=== PATIENT | female | born 1995 | race Caucasian/White ===

== ENCOUNTER 2019-01-09 09:55 | Emergency (ER) | payer MEDICAID ==
[~2019-01-09] VITALS: Ht 170.2 cm; Wt 67.7 kg
--- NOTE | 2019-01-09 10:30 | NUR ---
THIS IS A 23 YO FEMALE WHO PRESENTS TO THE ER C/O INTERMITTENT LEFT SIDED VISION LOSS WITH A SHARP PAIN BEHIND RIGHT EYE. PT REPORTS LEFT HAND PARASTHESIAS AND DECREASED SENSATION. PT CURRENTLY DENIES VISION LOSS AND HEAD PAIN BUT DOES REPORT DECREASED LEFT HAND SENSATION. PT AO X 4. SPEECH CLEAR. FACE SYMMETRICAL. PT ABLE TO [place] W/O DIFFICULTY. SKIN PWD. PT ON CONT BP AND O2 MONITORS. CALL LIGHT WITHIN REACH. WILL CONT TO MONITOR PT.
[2019-01-09] MEDS ORDERED: KETOROLAC 30 MG/1 ML IVPush ONE (11:30)
[2019-01-09] MEDS ORDERED: DIPHENHYDRAMINE 50 MG/ML, 1ML IVPush ONE (11:30)
[2019-01-09] MEDS ORDERED: PROCHLORPERAZINE 5 MG/ML, 2ML IVPush ONE (11:30)
--- NOTE | 2019-01-09 11:30 | NUR ---
PT CURRENTLY RESTING ON GURNEY. NAD NOTED. SKIN PWD. RESP EVEN AND EQAUL. NO CHANGE IN NEURO STATUS. PT AO X 4. PT AWARE WE ARE WAITING FOR ERMD EVAL. PT ON CONT BP AND O2 MONITORS. CALL LIGHT WITHIN REACH. WILL CONT TO MONITOR PT.
[2019-01-09] MEDS ORDERED: PROCHLORPERAZINE 5 MG/ML, 2ML ONE (11:32)
[2019-01-09] MEDS ORDERED: DIPHENHYDRAMINE 50 MG/ML, 1ML ONE (11:32)
[2019-01-09] MEDS ORDERED: KETOROLAC 30 MG/1 ML ONE (11:33)
--- NOTE | 2019-01-09 12:15 | NUR ---
PT CURRENTLY RESTING ON [place]. PT AO X 4. SKIN PWD. RESP EVEN AND EQAUL. PT REPORTS THAT PRESSURE IN HEAD AND HAND NUMBNESS/PARASTHESIAS HAVE MOSTLY RESOLVED AT THIS TIME. CALL LIGHT WITHIN REACH. WILL CONT TO MONITOR PT.
[2019-01-09 12:37] VITALS: BP 101/48
== END 2019-01-09 12:41 | disposition home or self-care (01) ==
LOC: ED 12:27
DX: G43.909 Migraine, unspecified, not intractable, without status migrainosus (principal); F17.200 Nicotine dependence, unspecified, uncomplicated
CPT/HCPCS: 96374; 96375; 99283; J0780; J1200; J1885